=== PATIENT | male | born 1970 | race Caucasian/White ===

== ENCOUNTER 2016-11-30 20:11 | Emergency (ER) | payer BC, OTHER ==
[2016-11-30 20:12] VITALS: BMI 29.6
[2016-11-30 20:23] VITALS: TEMP 98.3
[2016-11-30] MEDS ORDERED: IBUPROFEN 800 MG TAB PO ONE (20:30)
[2016-11-30] MEDS ORDERED: SODIUM CHLORIDE 0.9% 10 ML FLUSH FLUSH PRN (20:34)
[2016-11-30] MEDS ORDERED: FENTANYL 100 MCG/2 ML VIAL IV ONE (20:34)
[2016-11-30] MEDS ORDERED: ONDANSETRON HCL 4 MG/2 ML VIAL IV ONE (20:34)
--- NOTE | 2016-11-30 20:34 | EDPRACDOC ---
- General Information Chief Complaint: Headache Stated Complaint: HEADACHE X 3 DAYS Time Seen by Provider: 11/30/16 20:31 Mode Of Arrival: Car Home Medications: Home Medications Acetaminophen [Mapap] 100 mg PO Q8H PRN 11/30/16 Ibuprofen [Motrin Ib] 400 mg PO Q6-8H PRN 11/30/16 Naproxen Sodium 500 mg PO BID PRN #20 tablet.sa 11/30/16 Ondansetron [Zofran Odt] 4 mg PO TID PRN #10 tab.rapdis 11/30/16 Allergies/Adverse Reactions: Allergies Allergy/AdvReac Type Severity Reaction Status Date / Time azithromycin [From Zithromax] Allergy Severe Rash-Genera Verified 11/30/16 20:35 lized venom-honey bee Allergy Severe Hives* Verified 11/30/16 20:35 [bee venom (honey bee)] morphine Allergy Unknown Itching Verified 11/30/16 20:35 oxycodone HCl [From Percocet] Allergy Unknown Itching Verified 11/30/16 20:35 codeine Allergy Hives* Verified 11/30/16 20:35 levofloxacin [From Levaquin] Allergy Hives* Verified 11/30/16 20:35 - History of Present Illness Onset: 3 days HPI: PT COMPLAINS OF SUDDEN ONSET OF SHARP PAIN IN BACK OF HIS HEAD AFTER ORGASM DURING SEXUAL ACTIVITY. PT STATES PAIN IS THE WORSE HEADACHE HE HAS EVER EXPERIENCED, STATES PAIN HAS NOT IMPROVED AT ALL DESPITE TYLENOL AND MOTRIN, PT STATES HAS FELT NAUSEATED BUT HAS NOT VOMITED, STATES PAIN WORSE WITH "VERY BRIGHT LIGHTS". Location: Reports: Occipital Pain Quality: Reports: Severe, Stabbing, Sharp, Worst Headache of life Modifying Factors: improves with: Exposure to light, Movement Prior work up: Denies: NO, O, CT, LP, MRI, Neurologist Relevant History of: Reports: None Associated Signs and Symptoms: Reports: Nausea/Vomiting. Denies: Confusion, Fatigue, Facial Pain, Fever/Chills, Flushing, Loss of Consciousness, Nasal Congestion, Nasal Drainage, Numbness in Legs/Feet, Rash, Seizures, Sinus Infection, Stiff Neck, Vision Changes, Weakness ED Past Medical History - History Reviewed Yes Nurses notes reviewed and agree except as marked No Past Medical History: Yes Patient has no past medical history - Patient Medical History Psychological History: Denies: Depression Systemic History: Denies: Cancer - Social Medical History Smoking Status: Never smoker ETOH: Social Substance Abuse: None EDM Review of Systems - Review of Systems Constitutional: negative: Chills, Fever Eyes: Light Sensitive, Photophobia. negative: Blurred Vision, Double Vision Ears: negative: Drainage Throat: negative: Pain Nose: negative: Congestion, Discharge Respiratory: negative: Cough, Shortness of Breath, Wheezing Cardiovascular: negative: Chest Pain, Palpitations Gastrointestinal: Nausea. negative: Diarrhea, Pain, Vomiting Genitourinary: negative: Dysuria, Frequency Neurological: Headache. negative: Dizziness, Numbness, Weakness Musculoskeletal: No Symptoms Reported Integumentary: No Symptoms Reported - Physical Exam Constitutional: Alert (Awake), No apparent distress Oriented to: Time, Person, Place Last recorded Vital Signs: Last Vital Signs Temp 98.3 F 11/30/16 20:20 Pulse 67 11/30/16 20:20 Resp 20 11/30/16 20:20 BP 153/76 11/30/16 20:20 Pulse Ox 99 11/30/16 20:20 Oxygen Pulse Oxygen Saturation 99 O2 Device Room Air Oxygen Flow Rate Fraction of Inspired Oxygen ( FIO2) - HEENT Head: Normal ( normocephalic) Eye Exam: Normal (PERRL, EOMI, Sclera white) Oropharynx: Normal (Pharynx:Moist without exudate,Gums-no swelling) Tympanic Membrane: Normal ENT EAC: Normal TMJ: Normal Nose: No Symptoms Reported (septum midline) Neck: Normal (FROM, trachea at midline) - Respiratory/Cardiovascular Respiratory: Normal - CTA (BBS clear to auscultation without adventitious sounds ) Cardiovascular: Normal (RRR without murmur, gallop or rub) - GI Auscultation: Normal (NABS) Palpation: Normal (Soft,No rebound or guarding, non distended) Tenderness: Non tender Montoya's Sign: Negative - Musculoskeletal Back: Normal (Non-Tender) Extremities: Normal (Normal tone, Pulses 2+ No cyanosis or edema, FROM) - Integumentary Skin: Normal, Warm, Dry Lymphatics: Normal (no adenopathy) - Neurologic Memory Impaired: Normal Motor Function: Normal (Normal tone, Pulses 2+ No cyanosis or edema, FROM) Cranial Nerve: Normal (CN II-X11 intact sensation, strength 5/5) Cerebellar: Normal Mood Description: Normal Perception: Normal - Differential Diagnosis Migraine, Muscular Contraction, Hemorrhage-Subarachnoid - Re-evaluation Re-evaluation 1 Re-evaluation Time: 21:59 (HEADACHE STILL 05/12) Re-evaluation 2 Re-evaluation Time: 22:37 (FEELS BETTER, STATES "READY TO GO HOME") Decision Time to Discharge: 22:37 - Departure Disposition: Home Condition: Stable Final Diagnosis: Acute headache Qualifiers: Headache type: unspecified Intractability: not intractable Qualified Code(s): R51 - Headache Instructions: Acute Headache (ED) Education/Counseling Given To: Patient Education/Counseling Given Regarding: Diagnosis, Treatment, Prognosis, Follow Up Referrals: None,No Provider [Primary Care Provider] - One Week Prescriptions: New Naproxen Sodium 500 mg PO BID PRN #20 tablet.sa PRN Reason: Pain Ondansetron [Zofran Odt] 4 mg PO TID PRN #10 tab.rapdis PRN Reason: Nausea/Vomiting No Action Ibuprofen [Motrin Ib] 400 mg PO Q6-8H PRN PRN Reason: Pain Acetaminophen [Mapap] 100 mg PO Q8H PRN PRN Reason: Pain Additional Instructions: REST, DRINK PLENTY OF FLUIDS, RETURN TO THE ED FOR ANY WORSENING SYMPTOMS OR CONCERNS.
--- NOTE | 2016-11-30 21:53 | DIRPT ---
CLINICAL DATA: Headaches for 3 days. EXAM: CT HEAD WITHOUT CONTRAST TECHNIQUE: Contiguous axial images were obtained from the base of the skull through the vertex without intravenous contrast. COMPARISON: 03/26/2015 FINDINGS: Ventricles and sulci appear symmetrical. No mass effect or midline shift. No abnormal extra-axial fluid collections. Nguyen-white matter junctions are distinct. Basal cisterns are not effaced. No evidence of acute intracranial hemorrhage. No depressed skull fractures. Visualized paranasal sinuses and mastoid air cells are not opacified. IMPRESSION: No acute intracranial abnormalities. Electronically Signed By: Seymour Guillen M.D. On: 11/30/2016 21:51
[2016-11-30] MEDS ORDERED: KETOROLAC TROMETH 30 MG/ML VIAL IV ONE (21:59)
[2016-11-30] MEDS ORDERED: DIPHENHYDRAMINE 50 MG/ML VIAL IV ONE (21:59)
[2016-11-30] MEDS ORDERED: METOCLOPRAMIDE 10 MG/2 ML VIAL IV ONE (21:59)
[2016-11-30 22:54] VITALS: BP 124/68; PULSE 76
== END 2016-11-30 22:51 | disposition home or self-care (01) ==
LOC: ED 20:11
DX: R51 Headache (principal)
CPT/HCPCS: 70450; 96374; 96375; 99284; J1200; J1885; J2405; J2765; J3010; J3490